=== PATIENT | female | born 1945 | race Caucasian/White ===

== ENCOUNTER 2021-12-03 17:46 | Emergency (ER) | payer OTHER ==
--- OUTSIDE RECORDS SUMMARY | 2021-12-03 17:51 | XMS REPORT | Continuity of Care Document ---
:1945 Author Organization [facility] t Address [address] [place] [address] Care Team Providers Name Role Phone DARIO DICK Primary Care Physician Unavailable AJITH SALCEDO Attending Clinician Unavailable Dario Chávez Attending Clinician DARIO DICK Attending Clinician Unavailable SONIA BARRETO Attending Clinician Unavailable Doctor Unassigned, [place] Attending Clinician Unavailable Lab, Ang - Db Attending Clinician Unavailable Sonia Barreto MD Attending Clinician [phone] Payers Payer Name Policy Type Policy Number Effective Date Expiration Date S ource Problems Condition Condition Condition Status Onset Resolution Last Treating Co mments Source Name Details Category Date Date Treatment Clinician Date Post-menop Post-menop Disease Active U nivers ause ause 6-29 ity of 00:00: [place] 00 Medical Branch Wound of Wound of Disease Active Unive rs left lower left lower 5-25 [place] of [place] 00 Medical encounter encounter Bran ch Encounter Encounter Disease Active Uni vers to to 5-25 ity of establish establish 00:00: [facility] s care care 00 Medical Branch Gastroesop Gastroesop Disease Active U nivers hageal hageal 5-25 ity of reflux reflux 00:00: [place] disease disease 00 Medical without without Branch esophagiti esophagiti s s Varicose Varicose Disease Active Unive rs veins of veins of 5-25 [place]y of left [place] lower [place] extremity extremity 00 Medi yi with pain with pain Bran ch Discolorat Discolorat Disease Active U nivers ion of ion of 5-25 ity of skin of skin of 00:00: [place] lower leg lower leg 00 Medi yi Branch Need for Need for Disease Active Unive rs vaccinatio vaccinatio 5-25 it y of n n 00:00: [place] 00 Medical Branch Allergies, Adverse Reactions, Alerts Allergy Allergy Status Severity Reaction(s) Onset Inactive Treating Comm ents Source Name Type Date Date Clinician Codeine Propensi Active Nausea Univers ty to and/or 525 ity of adverse Vomiting 00:00: [place] reaction 00 Medical s Branch CODEINE DRUG Active N/V Univers INGREDI 5-25 ity of 00:00: [place] 00 Medical Branch Social History Social Habit Start Date Stop Date Quantity Comments Source Exposure to 2021-08-15 2021-08-25 Not sure [facility] SARS-CoV-2 00:00:00 12:12:00 [facility] [place] (event) [place] Alcohol intake 2021-08-12 2021-08-12 Lifetime University of 00:00:00 00:00:00 non-drinker [facility] [place] (finding) [place] Tobacco use and 2021-07-08 2021-07-08 Smokeless tobacco Un iversity of exposure 00:00:00 00:00:00 non-user [facility] Sex Assigned [birth year] Universit y of 00:00:00 00:00:00 [facility] Smoking Status Start Date Stop Date Source Never smoked tobacco [facility] Medications Ordered Filled Start Stop Current Ordering Indication Dosage Frequency Signature Comments Components Source Medication Medication Date Date Medication? Clinician (SIG) Name Name vitamin C Yes 500mg Take 500 Uni vers with johan 6-29 mg by ity of hips 08:12: mouth [place] (VITAMIN C) 00 daily. Medica l 1,000 mg Branch tablet vitamin C Yes 500mg Take 500 Uni vers with johan 6-29 mg by ity of hips 08:12: mouth [place] (VITAMIN C) 00 daily. Medica l 1,000 mg Branch tablet vitamin C Yes 500mg Take 500 Uni vers with johan 6-29 mg by ity of hips 08:12: mouth [place] (VITAMIN C) 00 daily. Medica l 1,000 mg Branch tablet vitamin C 0 Yes 500mg Take 500 Uni vers with johan 6-29 mg by ity of hips 08:12: mouth [place] (VITAMIN C) 00 daily. Medica l 1,000 mg Branch tablet vitamin C 2021-0 Yes 500mg Take 500 Uni vers with johan 6-29 mg by ity of hips 08:12: mouth [place] (VITAMIN C) 00 daily. Medica l 1,000 mg Branch tablet vitamin 2021-0 Yes 500ug Take 500 Unive rs B-12 6-01 mcg by ity of (VITAMIN 00:00: mouth [place] B-12) 500 00 daily. Medical mcg tablet Branch vitamin 2021-0 Yes 500ug Take 500 Unive rs B-12 6-01 mcg by ity of (VITAMIN 00:00: mouth [place] B-12) 500 00 daily. Medical mcg tablet Branch vitamin 2021-0 Yes 500ug Take 500 Unive rs B-12 6-01 mcg by ity of (VITAMIN 00:00: mouth [place] B-12) 500 00 daily. Medical mcg tablet Branch vitamin 2021-0 Yes 500ug Take 500 Unive rs B-12 6-01 mcg by ity of (VITAMIN 00:00: mouth [place] B-12) 500 00 daily. Medical mcg tablet Branch vitamin 2021-0 Yes 500ug Take 500 Unive rs B-12 6-01 mcg by ity of (VITAMIN 00:00: mouth [place] B-12) 500 00 daily. Medical mcg tablet Branch elderberry 0 Yes 50mg Take 50 mg U nivers fruit 5-25 by mouth ity of (ELDERBERRY 13:16: [place]. [place] ORAL[place] 58 Medical Branch Cholecalcif 2021-0 Yes 50{caps Take 50 Univers akash, 5-25 ule} capsules ity of Vitamin D3, 13:16: [place] mouth [place] (VITAMIN 58 daily. Medical D3) 50 mcg Branch (2,000 unit) capsule TURMERIC 0 Yes 550mg Take 550 Univ ers ORAL 5-25 mg by ity of 13:16: mouth [place] 58 daily. Medical Branch elderberry 2021-0 Yes 50mg Take 50 mg U nivers fruit 5-25 by mouth ity of (ELDERBERRY 13:16: [place]. [place] ORAL[place] 58 Medical Branch Cholecalcif 2022-0 Yes 50{caps Take 50 Univers akash, 5-25 ule} capsules ity of Vitamin D3, 13:16: [place] mouth [place] (VITAMIN 58 daily. Medical D3) 50 mcg Branch (2,000 unit) capsule TURMERIC Yes 550mg Take 550 Univ ers ORAL 5-25 mg by ity of 13:16: mouth [place] 58 daily. Medical Branch elderberry Yes 50mg Take 50 mg U nivers fruit 5-25 by mouth ity of (ELDERBERRY 13:16: [place]. [place] ORAL[place] 58 Medical Branch Cholecalcif Yes 50{caps Take 50 Univers akash, 5-25 ule} capsules ity of Vitamin D3, 13:16: [place] mouth [place] (VITAMIN 58 daily. Medical D3) 50 mcg Branch (2,000 unit) capsule TURMERIC Yes 550mg Take 550 Univ ers ORAL 5-25 mg by ity of 13:16: mouth [place] 58 daily. Medical Branch elderberry Yes 50mg Take 50 mg U nivers fruit 5-25 by mouth ity of (ELDERBERRY 13:16: daily. [place] ORAL) 58 Medical Branch Cholecalcif Yes 50{caps Take 50 Univers akash, 5-25 ule} capsules ity of Vitamin D3, 13:16: [place] mouth [place] (VITAMIN 58 daily. Medical D3) 50 mcg Branch (2,000 unit) capsule TURMERIC Yes 550mg Take 550 Univ ers ORAL 5-25 mg by ity of 13:16: mouth [place] 58 daily. Medical Branch elderberry Yes 50mg Take 50 mg U nivers fruit 5-25 by mouth ity of (ELDERBERRY 13:16: daily. [place] ORAL) 58 Medical Branch Cholecalcif Yes 50{caps Take 50 Univers akash, 5-25 ule} capsules ity of Vitamin D3, 13:16: [place] mouth [place] (VITAMIN 58 daily. Medical D3) 50 mcg Branch (2,000 unit) capsule TURMERIC Yes 550mg Take 550 Univ ers ORAL 5-25 mg by ity of 13:16: mouth [place] 58 daily. Medical Branch multivitami Yes Univer s n with 5-01 ity of minerals 00:00: [place] (MULTIPLE 00 Medical VITAMINS 55 Branch PLUS ORAL) famotidine- 2020-0 Yes Univer s calcium 5-01 ity of carbonate-m 00:00: [place] agnesium 00 Medical hydroxide Branch (PEPCID COMPLETE) 10-800-165 mg chew tablet multivitami 0 Yes Univer s n with 5-01 ity of minerals 00:00: [place] (MULTIPLE 00 Medical VITAMINS 55 Branch PLUS ORAL) famotidine- 2020-0 Yes Univer s calcium 5-01 ity of carbonate-m 00:00: [place] agnesium 00 Medical hydroxide Branch (PEPCID COMPLETE) 10-800-165 mg chew tablet multivitami 0 Yes Univer s n with 5-01 ity of minerals 00:00: [place] (MULTIPLE 00 Medical VITAMINS 55 Branch PLUS ORAL) famotidine- 2020-0 Yes Univer s calcium 5-01 ity of carbonate-m 00:00: [place] agnesium 00 Medical hydroxide Branch (PEPCID COMPLETE) 10-800-165 mg chew tablet multivitami 0 Yes Univer s n with 5-01 ity of minerals 00:00: [place] (MULTIPLE 00 Medical VITAMINS 55 Branch PLUS ORAL) famotidine- 2020-0 Yes Univer s calcium 5-01 ity of carbonate-m 00:00: [place] agnesium 00 Medical hydroxide Branch (PEPCID COMPLETE) 10-800-165 mg chew tablet multivitami 0 Yes Univer s n with 5-01 ity of minerals 00:00: [place] (MULTIPLE 00 Medical VITAMINS 55 Branch PLUS ORAL) famotidine- 2020-0 Yes Univer s calcium 5-01 ity of carbonate-m 00:00: [place] agnesium 00 Medical hydroxide Branch (PEPCID COMPLETE) 10-800-165 mg chew tablet Immunizations Ordered Filled Immunization Date Status Comments [facility] e Immunization Name Name SARS-COV-2 COVID-19 2021-07-08 Completed Unive rsity of MODERNA 0.25ML 00:00:00 [place] Medi yi BOOSTER VACCINE Branch SARS-COV-2 COVID-19 2021-07-08 Completed Unive rsity of MODERNA 0.25ML 00:00:00 [place] Medi yi BOOSTER VACCINE Branch SARS-COV-2 COVID-19 2021-07-08 Completed Unive rsity of MODERNA 0.25ML 00:00:00 [place] Medi yi BOOSTER VACCINE Branch SARS-COV-2 COVID-19 2021-07-08 Completed Unive rsity of MODERNA 0.25ML 00:00:00 [place] Medi yi BOOSTER VACCINE Branch SARS-COV-2 COVID-19 2021-07-08 Completed Unive rsity of MODERNA 0.25ML 00:00:00 [place] Medi yi BOOSTER VACCINE Branch SARS-COV-2 COVID-19 2021-01-14 Completed Unive rsity of MODERNA 0.5ML 00:00:00 [place] Medic al BOOSTER VACCINE Branch SARS-COV-2 COVID-19 2021-01-14 Completed Unive rsity of MODERNA 0.5ML 00:00:00 [place] Medic al BOOSTER VACCINE Branch SARS-COV-2 COVID-19 2021-01-14 Completed Unive rsity of MODERNA 0.5ML 00:00:00 [place] Medic al BOOSTER VACCINE Branch SARS-COV-2 COVID-19 2021-01-14 Completed Unive rsity of MODERNA 0.5ML 00:00:00 [place] Medic al BOOSTER VACCINE Branch SARS-COV-2 COVID-19 2021-01-14 Completed Unive rsity of MODERNA 0.5ML 00:00:00 [place] Medic al BOOSTER VACCINE Branch SARS-COV-2 COVID-19 2020-04-19 Completed Unive rsity of MODERNA VACCINE 00:00:00 [place] Med ical Branch SARS-COV-2 COVID-19 2020-04-19 Completed Unive rsity of MODERNA VACCINE 00:00:00 [place] Med ical Branch SARS-COV-2 COVID-19 2020-04-19 Completed Unive rsity of MODERNA VACCINE 00:00:00 [place] Med ical Branch SARS-COV-2 COVID-19 2020-04-19 Completed Unive rsity of MODERNA VACCINE 00:00:00 [place] Med ical Branch SARS-COV-2 COVID-19 2020-04-19 Completed Unive rsity of MODERNA VACCINE 00:00:00 [place] Med ical Branch SARS-COV-2 COVID-19 2020-03-22 Completed Unive rsity of MODERNA VACCINE 00:00:00 [place] Med ical Branch SARS-COV-2 COVID-19 2020-03-22 Completed Unive rsity of MODERNA VACCINE 00:00:00 [facility] Branch SARS-COV-2 COVID-19 2020-03-22 Completed Unive rsity of MODERNA VACCINE 00:00:[address] [facility] Branch SARS-COV-2 COVID-19 2020-03-22 Completed Unive rsity of MODERNA VACCINE 00:00:00 [facility] SARS-COV-2 COVID-19 2020-03-22 Completed Unive rsity of MODERNA VACCINE 00:00:00 [facility] Branch TDAP 2012-08-12 Completed University of 00:00:00 [facility] [place] Branch TDAP 2012-08-12 Completed University of 00:00:00 [facility] [place] Branch TDAP 2012-08-12 Completed University of 00:00:00 [facility] [place] Branch TDAP 2012-08-12 Completed University of 00:00:00 [facility] TDAP 2012-08-12 Completed University of 00:00:00 [facility] Vital Signs Vital Name Observation Time Observation Value Comments Source Systolic blood 2021-08-12 13:06:00 118 mm[Hg] Univer sity of [place] pressure [facility] Diastolic blood 2021-08-12 13:06:00 74 mm[Hg] Unive rsity of [place] pressure [facility] Heart rate 2021-08-12 13:06:00 75 /min [facility] Body height 2021-08-12 13:06:00 172.7 cm [facility] Body weight 2021-08-12 13:06:00 76.204 kg [facility] BMI 2021-08-12 13:06:00 25.54 kg/m2 [facility] Oxygen saturation 2021-08-12 13:06:00 98 /min [facility] in Arterial blood Medical Br anch by Pulse oximetry Procedures Procedure Date / Time Performed Performing Clinician Sourderek e DEXA AXIAL (HIP AND 2021-09-02 19:13:04 Dario Dick [facility] SPINE) Medical Branch NOTICE OF PRIVACY 2021-09-02 18:33:48 Doctor Unassigned, No Univ [facility] PRACTICES Name Medical Branch CONSENT/REFUSAL FOR 2021-09-02 18:33:21 Doctor Unassigned, No [facility] [place] [facility] DIAGNOSIS AND Name [facility] TREATMENT ASSIGNMENT OF BENEFITS 2021-09-02 18:33:01 Doctor Unassigned, No [facility] Encounters Start End Encounter Admission Attending Care Care Encounter Source Date/Time Date/Time Type Type Clinicians Facility Department ID 2021-09-02 2021-09-02 [facility] [id number] Univers 13:36:58 23:59:00 Encounter Dario COLE [id number] itfrancheska [facility] [id number] [facility] [id number] [address] 2021-09-02 2021-09-02 [id number] Univers 13:36:02 23:59:00 DARIO [facility] 2021-09-02 2021-09-02 [facility] [id number] Univers 13:36:02 23:59:00 Encounter [id number] [id number] [facility] [id number] [address] 2021-08-27 2021-08-27 Outpatient Nasreen BARRETO [facility] [id number] Univers 09:00:00 09:00:00 [facility] 2021-08-27 2021-08-27 Outpatient Nasreen BARRETO [facility] [id number] Univers 09:00:00 09:00:00 [facility] 2021-08-27 2021-08-27 Outpatient R ANTONIO [facility] [id number] Univers 09:00:00 09:00:00 [facility] 2021-08-14 2021-08-14 Patient Doctor [facility] [id number] Univers 00:00:00 00:00:00 Secure Msg Unassigned, HEALTH [id number] ity of [place] [id number] Glenn as LIA?BLEA [id number] [address] MEDICAL OFFICE BUILDING 2021-08-12 2021-08-12 Grinding Supervisor Lab, Ang - Db [facility] [id number] Univers 08:45:00 09:00:00 Visit Dario Dick [id number] [facility] [id number] [place] as LIA?BLEA [id number] [facility] [address] [facility] OFFICE [facility] 2021-08-12 2021-08-12 Outpatient R KAPIL [facility] [id number] Univers 08:45:00 08:45:00 DARIO daigle [facility] 2021-08-12 2021-08-12 Outpatient R KAPIL [facility] [id number] Univers 08:45:00 08:45:00 DARIO oxana [facility] 2021-08-12 2021-08-12 [facility] [id number] Univers 08:00:00 08:40:52 Visit Dario [facility] [id number] it y of [place] [id number] [place] as LIA?BLEA [id number] [address] OFFICE [facility] 2021-08-03 2021-08-03 Office JAS Barreto [id number] Univers 09:15:00 13:52:01 Visit Sonia Y HEALTH [id number] ity of [facility] [id number] [place] [id number] [address] 2021-08-03 2021-08-03 Outpatient R ANTONIO [facility] [id number] Univers 09:15:00 13:52:01 SONIA daigle [facility] 2021-08-03 2021-08-03 Outpatient R ANTONIO [facility] [id number] Univers 09:15:00 09:15:00 SONIA daigle [facility] 2021-07-15 2021-07-15 [id number] Univers 08:00:00 08:00:00 DAIRO daigle [facility] 2021-07-15 2021-07-15 Outpatient R KAPIL [facility] [id number] Univers 08:00:00 08:00:00 DARIO daigle [facility] 2021-07-10 2021-07-10 Outpatient R [facility] [id number] Univers 07:30:00 07:30:00 ity [facility] 2021-07-09 2021-07-09 Grinding Supervisor Lab, Ang - Db [facility] [id number] Univers 07:30:00 07:45:00 Visit Dario Dick [id number] ity of [place] [id number] [place] as LIA?BLEA [id number] Ms esdras [address] [place] MEDICAL OFFICE [facility] 2021-07-09 2021-07-09 Outpatient R KAPIL [facility] [id number] Univers 07:30:00 07:30:00 DARIO daigle [facility] 2021-07-09 2021-07-09 [facility] [id number] Univers 07:30:00 07:30:00 DARIO daigle [facility] 2021-07-09 2021-07-09 Outpatient R [facility] [id number] Univers 07:30:00 07:30:00 ity [facility] 2021-07-09 2021-07-09 Telephone Kapil [facility] [id number] Univers 00:00:00 00:00:00 Dario [facility] [id number] it y of [place] [id number] [place] as LIA?BLEA [id number] Ms esdras [address] [place] MEDICAL OFFICE [facility] 2021-07-08 2021-07-08 Office Kapil [facility] [id number] Univers 13:00:00 13:57:08 Visit Dario ISLAS [id number] it y of [place] [id number] [place] as LIA?BLEA [id number] Ms esdras [place] [place] MEDICAL OFFICE BUILDING 2021-07-08 2021-07-08 [facility] [id number] Univers 13:00:00 13:57:08 DARIO daigle [facility] Results This patient has no known results.
[2021-12-03 18:27] LABS: Absolute Lymphocytes (CBC) 2.1 K/uL (0.7-4.9); Hematocrit 41.5 % (36.0-45.0); Lymphocytes % 20.7 % (15.3-44.8); MCV 90.8 fL (80-100); MPV 6.9 fL (7.6-11.3); RBC Red Blood Cell Count 4.57 M/uL (3.86-4.86)
[2021-12-03 18:47] LABS: Albumin 4.3 g/dL (3.4-5.0); Bilirubin Total 0.7 mg/dL (0.2-1.0); Potassium 3.8 mmol/L (3.5-5.1); Protein, Total 8.4 g/dL (6.4-8.2)
--- NOTE | 2021-12-03 20:21 | RAD REPORT ---
EXAM DESCRIPTION: CT - Abdomen Pelvis W Contrast - 12/03/2021 8:04 pm CLINICAL HISTORY: Abdominal pain/right flank COMPARISON: none. TECHNIQUE: Computed axial tomography of the abdomen pelvis was obtained. 100 cc Isovue-300 was admin istered intravenously. Oral contrast was not requested which limits evaluation of bowel and appendix All CT scans are performed using dose optimization technique as appropriate and may include automated exposure control or mA/KV adjustment according to patient size. FINDINGS: Fatty liver Spleen, pancreas, adrenals unremarkable Small bilateral renal calculi. A 3 millimeter calculus proximal right ureter. Mild right hydronephros is. Diverticula stem from the colon without evidence diverticulitis No adnexal mass There is no evidence of diverticulitis. Small umbilical hernia 3 millimeter right middle lobe nodule IMPRESSION: 3 millimeter calculus proximal right ureter resulting in mild right hydronephrosis 3 millimeter right middle lobe nodule. If patient is high risk then followup unenhanced CT chest in 1 2 months would be recommended
[2021-12-03] MEDS ORDERED: TAMSULOSIN 0.4 MG SR CAP ONE (20:28)
[2021-12-03] MEDS ORDERED: MAGNESIUM SULFATE 1 gm IVPB 1 GM/100 ML BAG IV ONE (20:28)
[2021-12-03 20:40] LABS: Urine Blood 2+ (Negative); Urine Glucose Negative (Negative); Urine Protein Negative (Negative); Urine Specific Gravity 1.015 (1.005-1.030)
[2021-12-03 21:00] LABS: Urine Bacteria <20 /HPF (<20)
--- NOTE | 2021-12-03 21:01 | EDPHYS ---
Physician Documentation [facility] Name: Ananya Montanez Age: 76 yrs Sex: Female : 1945 Arrival Date: 12/03/2021 Time: 17:48 Bed Treatment Private MD: Theresa Dick ED Physician Eloy Briseno HPI: 12/03 20:31 This 76 yrs old Female presents to ER via Ambulatory with complaints of Flank Pain - right side. 20:31 The patient complains of pain in the right flank. The patient has not recently seen a physician. 20:31 The pain radiates to the abdomen. Onset: The symptoms/episode began/occurred 3 day(s) kb ago. Modifying factors: The symptoms are alleviated by nothing. the symptoms are aggravated by nothing. Associated signs and symptoms: The patient has no apparent associated signs or symptoms. Severity of pain: At its worst the pain was moderate in the emergency department the pain is unchanged. The patient has not experienced similar symptoms in the past. Historical: - Allergies: 17:56 Codeine; [facility] - Home Meds: 17:56 None [Active]; [facility] - PMHx: 17:56 wound left ankle - resolved SEPTEMBER 04; [facility] - PSHx: 17:56 None; [facility] - Immunization history:: Adult Immunizations up to date. - Social history:: Smoking status: Patient denies any tobacco usage or history of. ROS: 20:29 Constitutional: Negative for fever, chills, and weight loss. kb 20:29 Back: Positive for flank pain, on the right. 20:29 All other systems are negative. Exam: 20:29 Constitutional: This is a well developed, well nourished patient who is awake, alert, kb and in no acute distress. Head/Face: Normocephalic, atraumatic. ENT: Moist Mucous membranes Cardiovascular: Regular rate and rhythm with a normal S1 and S2. No gallops, murmurs, or rubs. No pulse deficits. Respiratory: Respirations even and unlabored. No increased work of breathing. Talking in full sentences Abdomen/GI: Soft, non-tender. No distention Back: No spinal tenderness. No costovertebral tenderness. Full range of motion. Skin: Warm, dry with normal turgor. Normal color. MS/ Extremity: Pulses equal, no cyanosis. Neurovascular intact. Full, normal range of motion. Neuro: Awake and alert, GCS 15, oriented to person, place, time, and situation. Moves all extremities. Normal gait. Psych: Awake, alert, with orientation to person, place and time. Behavior, mood, and affect are within normal limits. Vital Signs: 17:54 BP 185 / 96; Pulse 87; Resp 18; Temp 97.4; Pulse Ox 100% ; Weight 73.48 kg; Height 5 [facility] ft. 8 in. (172.72 cm); Pain 6/10; 18:30 BP 176 / 99; Pulse 90; Resp 18; Temp 99.1(O); Pulse Ox 99% on R/A; eh3 19:30 BP 149 / 97; Pulse 88; Resp 16; Pulse Ox 99% on R/A; eh3 20:30 BP 158 / 94; Pulse 89; Resp 18; Pulse Ox 99% on R/A; eh3 17:54 Body Mass Index 24.63 (73.48 kg, 172.72 cm) [facility] MDM: 17:59 Patient medically screened. kb 20:31 Data reviewed: vital signs, nurses notes. Data interpreted: Pulse oximetry: on room air kb is 99 %. Interpretation: normal. Counseling: I had a detailed discussion with the patient and/or guardian regarding: the historical points, exam findings, and any diagnostic results supporting the discharge/admit diagnosis, lab results, radiology results, the need for outpatient follow up, a urologist, to return to the emergency department if symptoms worsen or persist or if there are any questions or concerns that arise at home. 20:34 ED course: Pt is nontoxic in appearance and comfortable. Will follow up with Dr Osman estrada next week and/or return to ED for worsening symptoms. . 12/03 18: Order name: CBC with Diff; Complete Time: 18:39 kb 12/03 18: Order name: CMP; Complete Time: 18:54 kb 12/03 18: Order name: Lipase; Complete Time: 18:54 kb 12/03 18: Order name: Urine Microscopic Only; Complete Time: 21:01 kb 12/03 18: Order name: CT Abd/Pelvis - IV Contrast Only kb 12/03 20:40 Order name: Urine Dipstick-Ancillary; Complete Time: 20:41 EDMS 12/03 18:01 Order name: IV Saline Lock; Complete Time: 18:19 kb 12/03 18:01 Order name: Labs collected and sent; Complete Time: 18:19 kb 12/03 18:01 Order name: Urine Dipstick-Ancillary (obtain specimen); Complete Time: 20:58 kb 12/03 18:06 Order name: Abdomen ; Complete Time: 20:23 EDMS Administered Medications: 20:30 Drug: Magnesium Sulfate 1 grams Route: IVPB; Infused Over: 1 hrs; Site: left 3 antecubital; 20:30 Drug: Flomax (tamsulosin) 0.4 mg Route: PO; 3 21:26 Follow up: Response: No adverse reaction [facility] 21:10 Drug: Augmentin (Amoxicillin-Clavulanate) 875 mg Route: PO; 3 Disposition Summary: 12/03/21 21:00 Discharge Ordered Location: Home kb Condition: Stable kb Diagnosis - Calculus of ureter kb Followup: kb - With: Emergency Department - When: As needed - Reason: Worsening of condition Followup: kb - With: Private Physician - When: 2 - 3 days - Reason: Recheck today's complaints, Continuance of care, Re-evaluation by your physician Followup: kb - With: Wenceslao Brewer MD - When: 2 - 3 days - Reason: Recheck today's complaints Discharge Instructions: - Discharge Summary Sheet kb - Kidney Stones, [id number] kb - Dietary Guidelines to Help Prevent Kidney Stones kb Forms: - Medication Reconciliation Form kb - Thank You Letter kb - Antibiotic Education kb - Prescription Opioid Use kb Prescriptions: - Flomax 0.4 mg Oral capsule - take 1 capsule by ORAL route once daily 1/2 hour following the same meal each day; 10 capsule; Refills: 0, Product Selection Permitted - Augmentin 875-125 mg Oral Tablet - take 1 tablet by ORAL route every 12 hours for 10 days; 20 tablet; Refills: 0, Product Selection Permitted - Zofran 4 mg Oral Tablet - take 1 tablet by ORAL route every 12 hours As needed; 20 tablet; Refills: 0, Product Selection Permitted - Diclofenac Sodium 75 mg Oral tablet,delayed release (DR/EC) - take 1 tablet by ORAL route 2 times per day As needed; 30 tablet; Refills: 0, Product Selection Permitted Addendum: 12/08/2021 04:02 Co-signature as Attending Physician, Eloy Briseno MD I agree with the assessment and c corona plan of care. Signatures: Dispatcher [employer] Isabella Valadez, CARDIAC TECH-C CARDIAC TECH-Eloy Mcgarry MD MD cha Rees, Jessica, RN RN jh5 Peace Cody RN RN eh3 Corrections: (The following items were deleted from the chart) 12/03 17:57 17:56 PMHx: None; [facility]
--- NOTE | 2021-12-03 21:01 | ER ---
Nurse's Notes [facility] Name: Ananya Montanez Age: 76 yrs Sex: Female : 1945 Arrival Date: 12/03/2021 Time: 17:48 Bed Treatment Private MD: Theresa Dick Diagnosis: Calculus of ureter Presentation: 12/03 17:54 Chief complaint: Patient states: has been having right sided flank pain that radiates jh5 to the front abdomen, since Tuesday. Coronavirus screen: Vaccine status: Patient reports receiving the 2nd dose of the covid vaccine. Client denies travel out of the [place] in the last 14 days. At this time, the client does not indicate any symptoms associated with coronavirus-19. Ebola Screen: Patient negative for fever greater than or equal to 101.5 degrees Fahrenheit, and additional compatible Ebola Virus Disease symptoms Patient denies exposure to infectious person. Patient denies travel to an Ebola-affected area in the 21 days before illness onset. Initial Sepsis Screen: Does the patient meet any 2 criteria? No. Patient's initial sepsis screen is negative. Does the patient have a suspected source of infection? No. Patient's initial sepsis screen is negative. Risk Assessment: Do you want to hurt yourself or someone else? Patient reports no desire to harm self or others. Onset of symptoms was December 01, 2021. 17:54 Method Of Arrival: Ambulatory [facility] 17:54 Acuity: [facility] 3 jh5 Triage Assessment: 17:56 General: Appears uncomfortable, slender, well groomed, well developed, well nourished, [facility] Behavior is calm, cooperative, appropriate for age. Pain: Complains of pain in back and abdomen. Historical: - Allergies: 17:56 Codeine; [facility] - Home Meds: 17:56 None [Active]; [facility] - PMHx: 17:56 wound left ankle - resolved SEPTEMBER 04; [facility] - PSHx: 17:56 None; [facility] - Immunization history:: Adult Immunizations up to date. - Social history:: Smoking status: Patient denies any tobacco usage or history of. Screenin:30 Abuse screen: Denies threats or abuse. Denies injuries from another. Nutritional eh3 screening: No deficits noted. Tuberculosis screening: No symptoms or risk factors identified. Fall Risk None identified. Assessment: 18:30 General: Appears in no apparent distress. uncomfortable, Behavior is calm, cooperative, eh3 appropriate for age. Pain: Complains of pain in posterior aspect of right lateral abdomen Pain radiates to anterior aspect of right lateral abdomen Pain currently is 5 out of 10 on a pain scale. Quality of pain is described as sharp, stabbing, Pain began 2-3 days ago. Is episodic, Also complains of decreased appetite, nausea. Neuro: Level of Consciousness is awake, alert, obeys commands, Oriented to person, place, time, situation. Cardiovascular: Capillary refill < 3 seconds Patient's skin is warm and dry. Respiratory: Airway is patent Respiratory effort is even, unlabored. GI: Abdomen is round non-distended, Reports intolerance of fluids, intolerance of food, nausea, vomiting. : No signs and/or symptoms were reported regarding the genitourinary system. 19:30 Reassessment: Patient and/or family updated on plan of care and expected duration. Pain eh3 level reassessed. Patient is alert, oriented x 3, equal unlabored respirations, skin warm/dry/pink. 20:30 Reassessment: Patient and/or family updated on plan of care and expected duration. Pain eh3 level reassessed. Patient is alert, oriented x 3, equal unlabored respirations, skin warm/dry/pink. Vital Signs: 17:54 BP 185 / 96; Pulse 87; Resp 18; Temp 97.4; Pulse Ox 100% ; Weight 73.48 kg; Height 5 5 ft. 8 in. (172.72 cm); Pain 6/10; 18:30 BP 176 / 99; Pulse 90; Resp 18; Temp 99.1(O); Pulse Ox 99% on R/A; eh3 19:30 BP 149 / 97; Pulse 88; Resp 16; Pulse Ox 99% on R/A; eh3 20:30 BP 158 / 94; Pulse 89; Resp 18; Pulse Ox 99% on R/A; eh3 17:54 Body Mass Index 24.63 (73.48 kg, 172.72 cm) 5 ED Course: 17:48 Patient arrived in ED. am2 17:49 Theresa Dick is Private Physician. am2 17:49 Isabella Mccoy FNP-C is [facility]. kb 17:49 Eloy Briseno MD is Attending Physician. kb 17:56 Triage completed. [facility] 17:56 Arm band placed on right wrist. [facility] 18:30 Peace Cody, RN is Primary Nurse. 3 18:30 Patient has correct armband on for positive identification. Bed in low position. Call [facility] light in reach. Side rails up X2. Adult w/ patient. Client placed on continuous cardiac and pulse oximetry monitoring. NIBP monitoring applied. Door closed. Noise minimized. Lights dimmed. 20:05 Abdomen In Process Unspecified. EDMS 21:00 Wenceslao Brewer MD is Referral Physician. kb Administered Medications: 20:30 Drug: Magnesium Sulfate 1 grams Route: IVPB; Infused Over: 1 hrs; Site: left [facility] antecubital; 20:30 Drug: Flomax (tamsulosin) 0.4 mg Route: PO; [facility] 21:26 Follow up: Response: No adverse reaction [facility] 21:10 Drug: Augmentin (Amoxicillin-Clavulanate) 875 mg Route: PO; [facility] Outcome: 21:00 Discharge ordered by . kb 21:48 Patient left the ED. bb Signatures: Dispatcher [employer] EDAK Isaeblla Mccoy, [employer]AT[employer]-Rody Drake RN RN Anita Taylor Jessica RN RN [facility] Peace Cody, RN RN 3 Corrections: (The following items were deleted from the chart) 17:57 17:56 PMHx: None; [place] [id number] 18:34 18:30 BP 176 / 99; Pulse 90bpm; Resp 18bpm; Pulse Ox 99% RA; 3 3
[2021-12-03] MEDS ORDERED: AMOX/K CLAV 875 MG TAB ONE (21:08)
[2021-12-03 22:18] VITALS: TEMP 99.1; O2SAT 99
[2021-12-03 22:21] VITALS: BP 158/94
== END 2021-12-03 21:48 | disposition home or self-care (01) ==
LOC: ER 17:46
DX: N20.1 Calculus of ureter (principal); Z88.5 Allergy status to narcotic agent
CPT/HCPCS: 85025; 36415; 83690; 80053; 74177; 96374; 99283; Q9967; J3475; 81003; 81015